=== PATIENT | male | born 1955 ===

== ENCOUNTER 2024-06-06 08:55 | Emergency (ER) | payer OTHER ==
[~2024-06-06] VITALS: Ht 177.8 cm; Wt 106.6 kg
[2024-06-06] MEDS ORDERED: LISINOPRIL2.5 MG PO (09:09)
[2024-06-06] MEDS ORDERED: GLUMETZA500 MG PO (09:09)
[2024-06-06] MEDS ORDERED: LORATADINE/PSEUDOEPHEDRINE 1 TAB TAB.SR.24H PO ONE (09:30)
[2024-06-06] MEDS ORDERED: METHYLPREDNISOLONE SOD SUCC 40 MG VIAL IM ONE (09:30)
[2024-06-06] MEDS ORDERED: LEVALBUTEROL HCL 1.25 MG/3 ML SOLUTION IH ONE (09:30)
[2024-06-06] MEDS ORDERED: IPRATROPIUM BROMIDE 0.5 MG/2.5 ML AMPUL.NEB IH ONE (09:30)
[2024-06-06] MEDS ORDERED: BENZONATATE 200 MG CAPSULE PO ONE (09:30)
[2024-06-06 10:03] LABS: HEMATOCRIT 33.4 % (39.0-48.0); HEMOGLOBIN 11.5 g/dL (13-16.00); MEAN CORPUSCULAR HEMOGLOBIN 32.2 pg (27.00-32.0); MEAN CORPUSCULAR HGB CONC 34.3 g/dl (32.0-36.0); PLATELET COUNT 180 K/uL (150-450); RED BLOOD COUNT 3.56 M/uL (4.00-6.00); RED CELL DISTRIBUTION WIDTH 12.4 % (11.5-14.5)
[2024-06-06] MEDS ORDERED: LEVALBUTER0.63 MG/3 IH (10:38)
[2024-06-06] MEDS ORDERED: OSEL75CA PO (10:38)
[2024-06-06] MEDS ORDERED: SINGULAIR10 MG PO (10:38)
[2024-06-06] MEDS ORDERED: BENZONATATE200 M1 PO (10:38)
[2024-06-06] MEDS ORDERED: PEPCID AC20 MG PO (10:38)
== END 2024-06-06 10:57 | disposition home or self-care (01) ==
LOC: ER 08:55
PROVIDERS: General Practice
DX: R53.81 Other malaise (principal); J10.1 Influenza due to other identified influenza virus with other respiratory manifestations; Z20.822 Contact with and (suspected) exposure to COVID-19; I10 Essential (primary) hypertension; E11.9 Type 2 diabetes mellitus without complications; Z79.84 Long term (current) use of oral hypoglycemic drugs
CPT/HCPCS: 36415; 94640; 96372; 99282; J3490